=== PATIENT | female | born 1985 | race Caucasian/White ===

== ENCOUNTER 2017-10-13 10:38 | Day surgery (SDC) | payer OTHER, SELFPAY ==
[2017-10-11 15:49] LABS: Hemoglobin 12.1 g/dl (12.0-15.0); Mean Corp Hgb Conc 32.7 g/gl (32-36); Mean Corpuscular Hgb 26.9 pg (27.0-32.0); Mean Corpuscular Volume 82.2 fL (81-99); Mean Platelet Vol. 11.4 fl (6.2-12.0); Platelet Count 196 K/mm3 (150-450); RBC Distribution Width CV 13.7 % (11.6-14.6); RBC Distribution Width SD 40.3 fl (35.1-43.9); White Blood Count 5.9 K/mm3 (4.4-11.0)
[2017-10-11 15:52] LABS: Scan Indicated on CBC? Y/N NO
[2017-10-11 16:17] LABS: Prothrombin Time (Protime)PT. 13.1 SECONDS (11.7-14.9)
[2017-10-11 16:18] LABS: Partial Thromboplast Time 29.1 Seconds (24.1-36.2)
[2017-10-13] VITALS (7 sets, daily range): BP systolic 108–113; BP diastolic 58–70; PULSE 52–64; RESP 16–18; TEMP 36.3–36.7; O2SAT 98–100; BMI 24.0
[2017-10-13 11:41] LABS: Internal QC Validated? YES +Cl - CLEAR BKGD; Pregnancy, Urine Negative Negative
--- NOTE | 2017-10-13 12:05 | MISC_PTH ---
PATIENT: MARIAJOSE PEGUERO LOC: [facility] [place] U#:[id number] AGE/SX: 31/F ROOM: RE10/13/[address]: Dr. Debbie Tejada MD : [id number] BED: DIS: 10/13/2017 SPEC #: [id number] RECD: 10/14/17 10:35 STATUS: MENDEL KADEEM #: [id number] LENORE: 10/13/17 12:[address]: Debbie Taylor DEPT: SURGICAL PATHOLOGY RECD BY: Ray Briseno ENTERED: 10/14/17 12:57 SP TYPE: [facility] [place] H[address] DR: Kaykay Saba PA-C Tissues: Fallopian tube Procedures: Surgery Specimen Level IV HEADER OPERATION: Lap, right paratubal cystectomy, Mirena IUD placement PRE-OP DIAGNOSIS: Pelvic cyst TISSUE SUBMITTED: Right paratubal cyst MICROSCOPIC DIAGNOSIS Right paratubal cyst, excision: Consistent with serous cystadenoma of ovarian origin. AM:zaid 10/17/17 MICROSCOPIC DESCRIPTION Slides are reviewed. GROSS DESCRIPTION Received in fixative is one container labeled with the patient's name and designated right paratubal cyst. The specimen consists of a glistening fragment of pink-reese soft tissue measuring 3.2 x 1.5 x 1 cm. The external surface is inked and the specimen is serially sectioned. No cyst contents are grossly identified. The specimen is totally submitted in two cassettes. / AM:zaid 10/14/17 TC:5 CPT: 15817
[2017-10-13] MEDS: Bupivacaine Mpf 0.5% 30 ML VIAL (15:11)
--- NOTE | 2017-10-13 15:16 | PCM.OPRPT ---
Problem List (1) Paratubal cyst Status: Acute Comment: right (2) Abdominal pain Status: Acute Qualifiers: Abdominal location: lower abdomen, unspecified Qualified Code(s): R10.30 - Lower abdominal pain, unspecified Report of Operation Date of Procedure: 10/13/17 Pre-Operative Diagnosis: Right adnexal cyst Post-Operative Diagnosis: Paratubal cyst Surgery/Procedure Performed:: Laparoscopic right para-tubal cystectomy Description of Surgical Findings:: Appearing ovaries, tubes and uterus. Right paratubal cyst. vp global marketing [employer]: Mayuri Logan Type of Anesthesia:: General, Local Anesthesiologist: Sherice Pham Specimen's removed: Right paratubal cyst Estimated Blood Loss (mL): 5 Fluids Replaced: 900 mL Description of Procedure: Indications: Ms. Stark is a 39-year-old para 2012 with a persistent 5 cm simple right adnexal cyst throughout her that persisted . She reported intermittent lower abdominal pain. She is counseled regarding management options and opted to proceed with laparoscopic bilateral adnexal cystectomy. We discussed the possibility that salpingectomy for paratubal cyst or possible oophorectomy for ovarian cyst might be required. She also desired placement of Mirena IUD for contraception . Thus agreed to have it placed during the time of her cystectomy. Risks, benefits, indications of procedure were reviewed at length. Procedure: The patient was taken to the operating room and signed and was performed. She is placed in the dorsal supine position and induced under general anesthesia and intubated. She is then placed into dorsal lithotomy and the arms were tucked at her sides. The perineum and abdomen were prepped and draped in sterile fashion. The patient was placed into high lithotomy and his speculum weighted placed into the vagina the cervix was grasped at the anterior cervical lip using a single-tooth tenaculum. 100-7 cm. A Conn cannula was placed for uterine manipulation and secured. Patient was placed into low lithotomy attention turned to the abdomen. an incision was made at the inferior umbilicus and the varies needle placed. There was successful hanging drop test and no aspirate. The abdomen was insufflated to 15 mmHg and the varies needle removed. A 5 mm port was placed at this site using laparoscopic guidance confirming entry into the abdominal cavity. A second and third incisions were made at the right and left lower quadrant under transillumination to avoid vascular injury. 5 mm ports were also placed at the sites. The patient was placed into Trendelenburg and attention was turned to the pelvis. There appeared to be a 5 cm right paratubal cyst. Right tube was normal in appearance. The tubal cyst however was adhered to the ampullary portion of the tube. I dissected the cyst from the tube using sharp and blunt dissection and minimal coagulation. When freed the paratubal cyst was punctured and serous fluid drained. The cyst was retrieved via a port and sent to pathology. The cyst fluid and small amount of blood in the pelvis was suctioned. There was minimal bleeding from the mesosalpinx from the dissection of the cyst. This area was observed over several minutes of laparoscopy at low pressure insufflation while I performed the Mirena IUD placement. And attention was turned to the pelvis. The patient was placed into high lithotomy position and a Conn cannula was removed from the uterus. The Mirena IUD was placed within the uterus per die maker bench stamping instructions. The strings were cut at 2 cm from the external office. The tenaculum was removed from the cervix and the tenaculum site was hemostatic following compression. Given was removed from the vagina. Aleman catheter removed. Attention was again turned to the pelvis and there was no bleeding in the mesosalpinx pinks was hemostatic. The abdomen was further desufflated. The laparoscope and ports removed. The skin was reapproximated using 4-0 Monocryl by the COOK CANDY under my supervision. Steri-Strips and OpSite dressings were placed of incisions. Total of 30 cc of half percent bupivacaine was placed for additional analgesia locally. The patient was returned to the dorsal supine position, awakened, extubated and transferred to the recovery room without complication. She tolerated the procedure well. Sponge and needle counts were correct ?2. - Complications None - Admit VTE Documentation VTE Present on Admission: No VTE Mechan Device Prophylaxis: SCD's VTE Pharm Prophylaxis ordered?: No
--- NOTE | 2017-10-13 15:26 | OP.PCM_ITS ---
Problem List (1) Paratubal cyst Status: Acute Comment: right (2) Abdominal pain Status: Acute Qualifiers: Abdominal location: lower abdomen, unspecified Qualified Code(s): R10.30 - Lower abdominal pain, unspecified Report of Operation Date of Procedure: 10/13/17 Pre-Operative Diagnosis: Right adnexal cyst Post-Operative Diagnosis: Paratubal cyst Surgery/Procedure Performed:: Laparoscopic right para-tubal cystectomy Description of Surgical Findings:: Appearing ovaries, tubes and uterus. Right paratubal cyst. buying agent: Mayuri Logan Type of Anesthesia:: General, Local Anesthesiologist: Sherice Pham Specimen's removed: Right paratubal cyst Estimated Blood Loss (mL): 5 Fluids Replaced: 900 mL Description of Procedure: Indications: Ms. Stark is a 39-year-old para 2012 with a persistent 5 cm simple right adnexal cyst throughout her that persisted . She reported intermittent lower abdominal pain. She is counseled regarding management options and opted to proceed with laparoscopic bilateral adnexal cystectomy. We discussed the possibility that salpingectomy for paratubal cyst or possible oophorectomy for ovarian cyst might be required. She also desired placement of Mirena IUD for contraception . Thus agreed to have it placed during the time of her cystectomy. Risks, benefits, indications of procedure were reviewed at length. Procedure: The patient was taken to the operating room and signed and was performed. She is placed in the dorsal supine position and induced under general anesthesia and intubated. She is then placed into dorsal lithotomy and the arms were tucked at her sides. The perineum and abdomen were prepped and draped in sterile fashion. The patient was placed into high lithotomy and his speculum weighted placed into the vagina the cervix was grasped at the anterior cervical lip using a single-tooth tenaculum. 100-7 cm. A Conn cannula was placed for uterine manipulation and secured. Patient was placed into low lithotomy attention turned to the abdomen. an incision was made at the inferior umbilicus and the varies needle placed. There was successful hanging drop test and no aspirate. The abdomen was insufflated to 15 mmHg and the varies needle removed. A 5 mm port was placed at this site using laparoscopic guidance confirming entry into the abdominal cavity. A second and third incisions were made at the right and left lower quadrant under transillumination to avoid vascular injury. 5 mm ports were also placed at the sites. The patient was placed into Trendelenburg and attention was turned to the pelvis. There appeared to be a 5 cm right paratubal cyst. Right tube was normal in appearance. The tubal cyst however was adhered to the ampullary portion of the tube. I dissected the cyst from the tube using sharp and blunt dissection and minimal coagulation. When freed the paratubal cyst was punctured and serous fluid drained. The cyst was retrieved via a port and sent to pathology. The cyst fluid and small amount of blood in the pelvis was suctioned. There was minimal bleeding from the mesosalpinx from the dissection of the cyst. This area was observed over several minutes of laparoscopy at low pressure insufflation while I performed the Mirena IUD placement. And attention was turned to the pelvis. The patient was placed into high lithotomy position and a Conn cannula was removed from the uterus. The Mirena IUD was placed within the uterus per lathe sander instructions. The strings were cut at 2 cm from the external office. The tenaculum was removed from the cervix and the tenaculum site was hemostatic following compression. Given was removed from the vagina. Aleman catheter removed. Attention was again turned to the pelvis and there was no bleeding in the mesosalpinx pinks was hemostatic. The abdomen was further desufflated. The laparoscope and ports removed. The skin was reapproximated using 4-0 Monocryl by the DERRICK BOAT OPERATOR under my supervision. Steri- Strips and OpSite dressings were placed of incisions. Total of 30 cc of half percent bupivacaine was placed for additional analgesia locally. The patient was returned to the dorsal supine position, awakened, extubated and transferred to the recovery room without complication. She tolerated the procedure well. Sponge and needle counts were correct ?2. - Complications None - Admit VTE Documentation VTE Present on Admission: No VTE Mechan Device Prophylaxis: SCD's VTE Pharm Prophylaxis ordered?: No
--- NOTE | 2017-10-13 15:32 | PCM.DC ---
- Discharge Diagnoses Current Active Problems: Current Active and Chronic Problems Paratubal cyst (Acute) right Abdominal pain (Acute) Reason(s) for Visit for Discharge Instructions: Laparoscopy Discharge Activity: Return to Normal Activity, May not drive while taking narcotic pain medications., May Shower May resume sexual activity in: - - 2-4 weeks Lifting Restrictions: 10lb Call your doctor if you observe: Fever of 101 or Higher, Inability to urinate, Inability to have a bowel movement, Using more than one pad per hour, Shortness of breath, Chest pain, Calf discomfort, Uncontrolled pain Suture Line Care: Avoid Pulling/Pushing Remove Dressing in (days):: 1 Cleanse incision/area with: Soap & Water Allergies/Adverse Reactions: Allergies No Known Allergies Allergy (Verified 10/12/17 09:10) Medications to take at Discharge Docusate Sodium [Colace] 100 mg PO BID PRN PRN #60 cap 10/13/17 Ibuprofen 800 mg PO TID PRN #30 tab 10/13/17 Oxycodone [Oxyir] 1 - 2 tab PO Q6H PRN PRN #25 tablet 10/13/17 The following prescriptions were given: Oxycodone [Oxyir] 1 - 2 tab PO Q6H PRN PRN #25 tablet PRN Reason: Pain Docusate Sodium [Colace] 100 mg PO BID PRN PRN #60 cap PRN Reason: Constipation Ibuprofen 800 mg PO TID PRN #30 tab PRN Reason: Pain Primary Care Physician: Kaykay Saba PA-C [Primary Care Provider] - Please Follow Up With: Debbie Whaley MD When: 4 weeks
== END 2017-10-13 17:47 | disposition home or self-care (01) ==
LOC: SDC 10:38 → AC 10:39
PROVIDERS: Anesthesiology; Family Provider Family Medicine; PCP Family Medicine; Visit Provider Obstetrics & Gynecology
PROC: (CPT 58300; principal; 2017-10-13 11:50)
DX: D28.7 Benign neoplasm of other specified female genital organs (principal); N83.8 Other noninflammatory disorders of ovary, fallopian tube and broad ligament; Z30.430 Encounter for insertion of intrauterine contraceptive device; R10.30 Lower abdominal pain, unspecified; I34.1 Nonrheumatic mitral (valve) prolapse; Z86.79 Personal history of other diseases of the circulatory system
CPT/HCPCS: 58300; 58662; 36415; 81025; 85027; 85610; 85730; 86850; 86900; 88305; J7120; J2405

== ENCOUNTER → 2019-03-28 | Outpatient (CLI) | payer OTHER, SELFPAY ==
[2017-10-13 11:22] VITALS: BMI 24.0
[2019-04-02 12:34] LABS: HPV APTIMA, High Risk Negative (Negative)
== END | disposition home or self-care (01) ==
LOC: LABSPEC 14:13
PROVIDERS: Visit Provider Obstetrics & Gynecology
DX: Z12.4 Encounter for screening for malignant neoplasm of cervix (principal)
CPT/HCPCS: 87624; 88175; G0145

== ENCOUNTER 2021-11-27 16:22 | Outpatient (CLI) | payer BC, SELFPAY ==
[2021-12-05 19:22] LABS: HPV APTIMA, High Risk Negative (Negative)
== END 2021-11-27 23:59 | disposition home or self-care (01) ==
LOC: LABSPEC 16:24
PROVIDERS: Visit Provider Student in an Organized Health Care Education/Training Program
DX: Z12.4 Encounter for screening for malignant neoplasm of cervix (principal)
CPT/HCPCS: 87624; 88175; G0145

== ENCOUNTER → 2024-09-10 | Outpatient (CLI) | payer BC, SELFPAY ==
--- NOTE | 2024-09-10 14:22 | US_ITS ---
STUDY: ULTRASOUND BREAST - LEFT REASON FOR EXAM: Female, 38 years old. Palpable mass TECHNIQUE: Axial and longitudinal images of the LEFT breast were performed with a high resolution ultrasound transducer. # OF IMAGES: 19 COMPARISON: Diagnostic mammogram earlier today FINDINGS: LEFT Breast: Heterogeneous background echotexture. Multiple longitudinal and transverse ultrasound images of the retroareolar left breast confirm a 2 mm round parallel circumscribed anechoic mass consistent with a tiny cyst corresponding to the palpable abnormality.: US/Breast Limited Unilateral IMPRESSION: Ultrasound confirms a 2 mm cyst in the retroareolar left breast corresponding to the palpable abnormality. ASSESSMENT CATEGORY: BIRADS Category 2: Benign. A letter regarding these results will be sent to the patient by the facility within 30 days. Electronically Signed: Ray Esteban MD at 17:04 EST ,
--- NOTE | 2024-09-10 14:22 | BI_ITS ---
MAMMOGRAPHY - BILATERAL DIAGNOSTIC REASON FOR EXAM: Female, 38 years old. breast lump PERTINENT HISTORY: Non-contributory. TECHNIQUE: Digital examination. Mediolateral oblique (MLO) and craniocaudad (CC) views of both breasts were obtained. CAD: CAD was performed on this study. COMPARISON: None. FINDINGS: Breast Composition: The breasts are extremely dense, which lowers the sensitivity of mammography. There are no dominant masses or suspicious calcifications. No other significant abnormalities are identified. BI/DIAG MAMM W/CAD, BILAT IMPRESSION: Stable bilateral diagnostic mammogram. Ultrasound of the palpable abnormality in the retroareolar left breast will be obtained. ASSESSMENT CATEGORY: BIRADS Category 0: Incomplete. Need additional imaging evaluation. A letter regarding these results will be sent to the patient by the facility within 30 days. FOLLOW UP RECOMMENDATION: Ultrasound Recommended. (I) Approximately 10% of breast cancers are not detected by mammography. A normal mammogram should not delay biopsy of a clinically suspicious abnormality. Electronically Signed: Ray Esteban MD at 15:01 EST ,
== END | disposition home or self-care (01) ==
PROVIDERS: Referring Provider Obstetrics & Gynecology; Visit Provider Obstetrics & Gynecology
DX: N63.42 Unspecified lump in left breast, subareolar (principal)
CPT/HCPCS: 76642; 77062; 77066; G0279